=== PATIENT | male | born 1960 | race American Indian/Alaskan Native ===

== ENCOUNTER 2017-05-14 11:08 | Outpatient (CLI) | payer OTHER | END 2017-05-14 11:13 | disposition home or self-care (01) | LOC: LAB 11:08 | DX: Z12.11 Encounter for screening for malignant neoplasm of colon (principal); Z13.29 Encounter for screening for other suspected endocrine disorder ==

== ENCOUNTER 2017-09-12 10:02 | Outpatient (CLI) | payer OTHER | END 2017-09-12 10:57 | disposition home or self-care (01) | LOC: LAB 10:02 | DX: E03.9 Hypothyroidism, unspecified (principal); E78.00 Pure hypercholesterolemia, unspecified; E55.9 Vitamin D deficiency, unspecified; D64.9 Anemia, unspecified; N52.9 Male erectile dysfunction, unspecified ==

== ENCOUNTER 2017-12-22 06:39 | Outpatient (CLI) | payer OTHER | END 2017-12-22 06:43 | disposition home or self-care (01) | LOC: LAB 06:39 | DX: D64.89 Other specified anemias (principal); E78.00 Pure hypercholesterolemia, unspecified; E29.1 Testicular hypofunction ==

== ENCOUNTER 2021-04-22 09:00 | Outpatient (CLI) | payer OTHER | END 2021-04-22 09:15 | disposition home or self-care (01) | LOC: PPH VACUNA 09:00 | PROVIDERS: ATTEND Emergency Medicine Pediatric Emergency Medicine | DX: Z23 Encounter for immunization (principal) ==

== ENCOUNTER 2021-11-15 10:55 | Outpatient (CLI) | payer OTHER | END 2021-11-15 11:10 | disposition home or self-care (01) | LOC: PPH VACUNA 10:55 | PROVIDERS: ATTEND Emergency Medicine Pediatric Emergency Medicine | DX: Z23 Encounter for immunization (principal) ==

== ENCOUNTER 2021-11-26 08:49 | Outpatient (CLI) | payer OTHER | END 2021-11-26 11:28 | disposition home or self-care (01) | LOC: EDBD 08:49 → LAB 08:49 | DX: Z20.822 Contact with and (suspected) exposure to COVID-19 (principal) ==

== ENCOUNTER 2024-06-02 07:14 | Outpatient (CLI) | payer OTHER | END 2024-06-02 07:29 | disposition home or self-care (01) | LOC: MRI 07:14 | PROVIDERS: ATTEND Orthopaedic Surgery Sports Medicine | DX: M17.11 Unilateral primary osteoarthritis, right knee (principal) | CPT/HCPCS: 73720; Q9965; 73721 ==

== ENCOUNTER 2025-01-19 11:00 | Day surgery (SDC) | payer OTHER ==
[~2025-01-19 11:00] MED LIST: EZALLOR SPRINKLE5 MG
[2025-01-19] MEDS ORDERED: CEFAZOLIN SODIUM 1,000 MG VIAL ONE (11:08)
[2025-01-19] MEDS ORDERED: BUPIVACAINE HCL/MPF 0.5% 30ML VIAL ONE (11:08)
[2025-01-19] MEDS ORDERED: CEFAZOLIN SODIUM 1,000 MG VIAL IV ONE (12:30)
[2025-01-19] MEDS ORDERED: BUPIVACAINE HCL 30 ML VIAL IJ ONE (12:30)
[2025-01-19] MEDS ORDERED: KETOROLAC TROMETHAMINE 60 MG VIAL IM ONE ×2 (13:09→13:30)
[2025-01-19] MEDS ORDERED: SUGAMMADEX SODIUM 200 MG/2 ML VIAL IV ONE ×2 (13:09→13:30)
[2025-01-19] MEDS ORDERED: KETO10TA2 PO (15:12)
[2025-01-19] MEDS ORDERED: MIRALAX17 GM PO (15:12)
[2025-01-19] MEDS ORDERED: TRAMADOL HCL50 MG PO (15:12)
[2025-01-19] MEDS ORDERED: TYLENOL ARTHRI650 MG PO (15:12)
== END 2025-01-19 17:00 | disposition home or self-care (01) ==
LOC: CIR.AMB 11:00
PROVIDERS: ATTEND Surgery
DX: K40.90 Unilateral inguinal hernia, without obstruction or gangrene, not specified as recurrent (principal)
CPT/HCPCS: 49650; C1781